=== PATIENT | female | born 1960 | race American Indian/Alaskan Native ===

== ENCOUNTER 2025-05-12 17:07 | Emergency (ER) | payer OTHER ==
[~2025-05-12] VITALS: Ht 162.6 cm; Wt 106.6 kg
[~2025-05-12 17:07] MED LIST: MACROBID 100 M100 MG PO; PYRIDIUM200 MG PO
[2025-05-12] MEDS ORDERED: OZEMPIC2 MG/0.75 (17:21)
[2025-05-12 17:28] LABS: BASOPHILS 0.3 % (0.1-1.2); EOSINOPHILS 1.7 % (0.7-5.8); LYMPHOCYTES 22.2 % (19.3-51.7); MCH 28.0 PG (25.6-32.2); MCHC 32.4 g/dL (32.2-35.5); MCV 86.4 fL (79.4-94.8); MONOCYTES 8.3 % (4.7-12.5); NEUTROPHILS 67.0 % (34.0-71.1); RBC 4.50 M/uL (3.93-5.22)
[2025-05-12] MEDS ORDERED: KETOROLAC TROMETHAMINE 15 MG/ML VIAL IV ONE (17:30)
[2025-05-12 17:41] LABS: ALT (SGPT) 36.0 U/L (14-59); AST (SGOT) 16.0 U/L (15-37); GLOMERULAR FILTRATION RATE,EST 61.0 mL/min (>60); PROTEIN, TOTAL 7.5 g/dL (6.4-8.2); UREA NITROGEN 17.0 mg/dL (7-18)
[2025-05-12 18:24] LABS: BLOOD/HGB, URINE LARGE (Negative); KETONE, URINE NEGATIVE (Negative); LEUK ESTERASE, URINE SMALL (negative); NITRITE, URINE POSITIVE (negative)
[2025-05-12 18:32] LABS: BACTERIA, URINE 2+ /hpf (negative); CASTS, URINE NONE SEEN \\lpf; CRYSTALS, URINE NONE SEEN (0-1+); EPITHELIAL CELLS, URINE SQUAMOUS 1+ /lpf (0-1+); REFLEX CULTURE, URINE Yes (No)
[2025-05-12] MEDS ORDERED: CEPHALEXIN MONOHYDRATE 500 MG CAP PO ONE (19:00)
[2025-05-12] MEDS ORDERED: CEPHALEXIN500 M1 PO (19:02)
[2025-05-12 19:13] VITALS: BP 165/90
== END 2025-05-12 19:13 | disposition home or self-care (01) ==
LOC: ED 17:07
PROVIDERS: Emergency Medicine
DX: N39.0 Urinary tract infection, site not specified (principal); K80.20 Calculus of gallbladder without cholecystitis without obstruction; D35.02 Benign neoplasm of left adrenal gland; E11.9 Type 2 diabetes mellitus without complications; Z79.85 Long-term (current) use of injectable non-insulin antidiabetic drugs
CPT/HCPCS: 36415; 74176; 80053; 81001; 83690; 85025; 87088; 96374; 96375; 99284-25; A9270; J1885; J2405